=== PATIENT | male | born 1950 | race Caucasian/White ===

== ENCOUNTER → 2017-04-17 | Outpatient (CLI) | payer OTHER, MEDICARE | LOC: FLAB 10:13 | PROVIDERS: ATTEND Neurological Surgery | DX: Z98.1 Arthrodesis status (principal) ==

== ENCOUNTER → 2017-11-15 | Outpatient (CLI) | payer OTHER, MEDICARE | LOC: FIMAGING 08:32 | PROVIDERS: ATTEND Nurse Practitioner | DX: Z98.1 Arthrodesis status (principal); M51.36 Other intervertebral disc degeneration, lumbar region; M99.73 Connective tissue and disc stenosis of intervertebral foramina of lumbar region ==

== ENCOUNTER → 2018-02-20 | Outpatient (CLI) | payer OTHER, MEDICARE | LOC: FLAB 12:57 → FIMAGING 12:57 → EDSTATUS 12:59 | PROVIDERS: ATTEND Physical Medicine & Rehabilitation | DX: M25.552 Pain in left hip (principal) ==

== ENCOUNTER → 2018-04-09 | Outpatient (CLI) | payer OTHER, MEDICARE | LOC: FCPNEURO 20:00 | PROVIDERS: ATTEND Psychiatry & Neurology Sleep Medicine | DX: G47.33 Obstructive sleep apnea (adult) (pediatric) (principal) ==

== ENCOUNTER → 2018-12-25 | Outpatient (CLI) | payer OTHER, MEDICARE | LOC: FCPNEURO 21:00 ==

== ENCOUNTER → 2019-01-13 | Outpatient (CLI) | payer OTHER, MEDICARE | LOC: FCPNEURO 21:30 | PROVIDERS: ATTEND Student in an Organized Health Care Education/Training Program | DX: G47.39 Other sleep apnea (principal); G47.33 Obstructive sleep apnea (adult) (pediatric) ==